=== PATIENT | male | born 1985 | race Caucasian/White ===

== ENCOUNTER 2017-02-07 16:40 | Emergency (ER) | payer SELFPAY ==
[2017-02-07 20:35] LABS: BASOPHILS 0.2 % (0-2); EOSINOPHILS 0 % (0-7); HEMATOCRIT 40.2 % (42.0-54.0); HEMOGLOBIN 14.5 g/dL (13.5-17.5); IMMATURE GRANULOCYTES 0.6 % (0-5); LYMPHOCYTES 6.2 % (15-50); MCH 32.1 pg (26.0-34.0); MCHC 36.1 g/dL (31.0-37.0); MCV 88.9 fL (80.0-100.0); MEAN PLATELET VOLUME 9.9 fL (7.4-10.4); MONOCYTES 7.4 % (2-11); NEUTROPHILS 85.6 % (40-80); PLATELET COUNT 172 10x3/uL (130-400); RBC 4.52 10x6/uL (4.20-6.10); RDW 12.1 % (11.5-14.5); WBC 16.7 10x3/uL (4.8-10.8)
[2017-02-07 21:18] LABS: ALBUMIN 2.5 g/dL (3.4-5.0); ALKALINE PHOSPHATASE 59 U/L (46-116); ALT (SGPT) 30 U/L (10-68); BILIRUBIN - TOTAL 0.72 mg/dL (0.2-1.3); CALC OSMOLALITY 260 mosm/kg (275-300); CALCIUM 7.9 mg/dL (8.5-10.1); CARBON DIOXIDE 24.4 mmol/L (21.0-32.0); CHLORIDE - SERUM 97 mmol/L (98-107); CREATININE - SERUM 1.1 mg/dL (0.6-1.3); GLUCOSE 138 mg/dL (74-106); POTASSIUM - SERUM 3.7 mmol/L (3.5-5.1); PROTEIN - SERUM 5.4 g/dL (6.4-8.2); SODIUM 129 mmol/L (136-145); UREA NITROGEN 13 mg/dL (7-18); eGFR NON AFRICAN AMERICAN 83 mL/min (90-120)
[2017-02-07 21:54] LABS: APPEARANCE HAZY (CLEAR); BILIRUBIN NEGATIVE (NEGATIVE); COLOR YELLOW (YELLOW); GLUCOSE NEGATIVE (NEGATIVE); KETONE NEGATIVE (NEGATIVE); NITRITE POSITIVE (NEGATIVE); PROTEIN TRACE mg/dL (NEGATIVE)
[2017-02-07 21:57] LABS: BACTERIA MANY /hpf (NONE SEEN); RED CELLS - URINE OCC /hpf (0-5)
[2017-02-07 21:59] LABS: UDS - AMPHET POSITIVE QUAL (NEGATIVE); UDS - BARB NEGATIVE QUAL (NEGATIVE); UDS - BENZO NEGATIVE QUAL (NEGATIVE); UDS - COCAINE NEGATIVE QUAL (NEGATIVE); UDS - OPIATE POSITIVE QUAL (NEGATIVE); UDS - PCP NEGATIVE QUAL (NEGATIVE); UDS - THC POSITIVE QUAL (NEGATIVE)
== END 2017-02-08 01:15 | disposition home or self-care (01) ==
LOC: D.ER 16:40
PROVIDERS: Nurse Practitioner Acute Care
DX: M51.36 Other intervertebral disc degeneration, lumbar region (principal); N39.0 Urinary tract infection, site not specified; F15.10 Other stimulant abuse, uncomplicated; F12.10 Cannabis abuse, uncomplicated; F17.200 Nicotine dependence, unspecified, uncomplicated

== ENCOUNTER 2017-05-26 11:06 | Emergency (ER) | payer SELFPAY | END 2017-05-26 14:20 | disposition home or self-care (01) | LOC: D.ER 11:06 | DX: M54.5 Low back pain (principal); M54.2 Cervicalgia; R51 Headache; V43.52XA Car driver injured in collision with other type car in traffic accident, initial encounter; Y93.89 Activity, other specified; Y92.410 Unspecified street and highway as the place of occurrence of the external cause; F17.200 Nicotine dependence, unspecified, uncomplicated ==

== ENCOUNTER 2018-05-15 09:38 | Emergency (ER) | payer SELFPAY ==
[~2018-05-15] VITALS: Ht 177.8 cm; Wt 72.7 kg
[2018-05-15 09:52] VITALS: Ht 177.8 cm; Wt 72.7 kg
[2018-05-15] MEDS ORDERED: TORADOL10 MG PO (10:48)
[2018-05-15 11:00] VITALS: BP 130/72
== END 2018-05-15 11:01 | disposition home or self-care (01) ==
LOC: D.ER 09:38
DX: S69.92XA Unspecified injury of left wrist, hand and finger(s), initial encounter (principal); V86.56XA Driver of dirt bike or motor/cross bike injured in nontraffic accident, initial encounter; Y93.89 Activity, other specified; Y92.89 Other specified places as the place of occurrence of the external cause

== ENCOUNTER 2018-10-16 08:30 | Emergency (ER) | payer OTHER ==
[~2018-10-16] VITALS: Ht 177.8 cm; Wt 70.5 kg
[~2018-10-16 08:30] MED LIST: TORADOL10 MG PO
[2018-10-16 08:31] VITALS: Ht 177.8 cm; Wt 70.5 kg
[2018-10-16] MEDS ORDERED: CYCLOBENZAPRINE10 MG PO (08:35)
[2018-10-16] MEDS ORDERED: STERAPRED 5MG 125 MG PO (08:35)
[2018-10-16] MEDS ORDERED: HYDROCODON-ACE1 EAC2 PO (11:59)
[2018-10-16 12:14] VITALS: BP 112/72
== END 2018-10-16 12:15 | disposition home or self-care (01) ==
LOC: D.ER 08:30
DX: T26.92XA Corrosion of left eye and adnexa, part unspecified, initial encounter (principal); Y93.89 Activity, other specified; Y92.89 Other specified places as the place of occurrence of the external cause